=== PATIENT | female | born 2000 | race Two or more races ===

== ENCOUNTER 2023-04-06 15:57 | Emergency (ER) | payer MEDICAID, OTHER ==
[~2023-04-06] VITALS: Ht 154.9 cm; Wt 58.0 kg
[2023-04-06] MEDS ORDERED: IOHEXOL 300 MG/ML 100ML BOTTLE IJ ONE (16:55)
[2023-04-06] MEDS ORDERED: MORPHINE SULFATE INJ 2 MG/ml SYRG IV ONE ×2 (18:15→20:00)
[2023-04-06 18:35] LABS: Alanine Aminotransferase 17 U/L (7-40); Albumin 4.7 g/dL (3.2-4.8); Alkaline Phosphatase 58 U/L (46-116); Anion Gap 14 (5-15); Aspartate Aminotransferase 21 U/L (13-40); BUN/Creatinine Ratio 14.9 (10.0-20.0); Bilirubin, Total 0.3 mg/dL (0.2-1.0); Blood Alcohol < 3.0 mg/dL (<10); Blood Urea Nitrogen 10 mg/dL (9-23); Carbon Dioxide 18 mmol/L (20-30); Chloride 105 mmol/L (98-107); Glucose 88 mg/dL (74-106); Potassium 3.8 mmol/L (3.5-5.1); Sodium 137 mmol/L (136-145); Total Protein 7.7 g/dL (5.7-8.2)
[2023-04-06 19:30] VITALS: PULSE 96; RESP 18; TEMP 98.4; O2SAT 99
[2023-04-06] MEDS ORDERED: ONDANSETRON HCL 4 MG/2 ML VIAL IV ONE ×2 (19:45→22:30)
[2023-04-06 20:24] LABS: Basophils # (auto) 0 10 ^3/uL (0-0.2); Eosinophils # (auto) 0 10 ^3/uL (0-0.8); Hemoglobin 8.3 g/dL (12.2-16.2); Monocytes # (auto) 0.6 10 ^3/uL (0-1.3)
[2023-04-06 20:26] LABS: Hematocrit 27.9 % (36.0-46.0); Lymphocytes # (auto) 0.6 10 ^3/uL (0.4-5.4); Lymphocytes % (auto) 2.8 % (10.0-50.0); Mean Corpuscular Hemoglobin 19.1 pg (28.0-32.0); Mean Corpuscular Hgb Conc. 29.6 g/dL (32.0-36.0); Mean Corpuscular Volume 64.6 fL (80.0-100.0); Monocytes % (auto) 3.1 % (0.0-12.0); Neutrophils # (auto) 19.1 10 ^3/uL (1.6-8.6); Neutrophils % (auto) 94.1 % (37.0-80.0); Nucleated Red Blood Cells % 0.1 %; Red Blood Cells 4.33 10^6/uL (4.0-5.20); Red Cell Distribution Width 17.3 % (11.8-14.3); White Blood Cell 20.4 10^3/uL (4.4-10.8)
[2023-04-06 20:57] LABS: Platelet Estimate Increased
[2023-04-06 20:58] LABS: Hypochromia Moderate; Ovalocytes FEW; Stomatocytes Few
[2023-04-06] MEDS ORDERED: HYDROmorphone HCL 2 MG/ML VL/or syr IV ONE (23:30)
[2023-04-07] MEDS ORDERED: HYDROcodone-ACET 5/325MG TAB PO ONE (03:00)
[2023-04-07] MEDS ORDERED: ONDANSETRON HCL 4 MG/2 ML VIAL IV ONE (03:15)
[2023-04-07] MEDS ORDERED: MORPHINE SULFATE INJ 2 MG/ml SYRG IV ONE (03:15)
[2023-04-07] MEDS ORDERED: HYDR-4902 PO (03:21)
[2023-04-07] MEDS ORDERED: IBUP1TAB5 PO (03:27)
[2023-04-07 04:00] VITALS: O2SAT 99
[2023-04-07 04:01] VITALS: BP 129/82; PULSE 92; RESP 20
== END 2023-04-07 04:19 | disposition home or self-care (01) ==
LOC: ER 15:57
DX: S42.291A Other displaced fracture of upper end of right humerus, initial encounter for closed fracture (principal); R51.9 Headache, unspecified; Z79.899 Other long term (current) drug therapy; V89.9XXA Person injured in unspecified vehicle accident, initial encounter; Y93.89 Activity, other specified; Y92.89 Other specified places as the place of occurrence of the external cause; Y99.8 Other external cause status
CPT/HCPCS: 29105; 36415; 70450; 71260; 72125; 73030; 73110; 73200; 74177; 80053; 80320; 85025; 96374; 96375; 96376; 99285; J1170; J2270; J2405